=== PATIENT | male | born 1980 | race Caucasian/White ===

== ENCOUNTER 2022-09-07 08:13 | Outpatient (CLI) | payer MEDICARE, SELFPAY ==
--- NOTE | 2022-09-16 17:15 | WPDSLEEPSTUD ---
Sleep Study Date of Study: 09/07/22 Ordering Provider: Mirella Junior Interpreting Physician: Ivelisse Dale MD Sleep Study Type: CPAP Titration Height: 1.7 m Weight: 111.13 kg Body Mass Index: 38.3 Neck Circumference (inches): 17 [place]: 22 Reason for Sleep Study Hypersomnolence despite using Lunda device since March 2022; patient presents for a CPAP titration * 02/21/2022, home sleep test, [place], [place]; [employer] Lauren NightOne device; AHI 7.6 using 3% criteria, AHI 6.2 using 4% criteria, minimum oxygen desaturation 82%. Sleep History Ángel March is a 42-year-old man with a long history of loud snoring and excessive daytime sleepiness. He reports morning headaches. He was diagnosed with obstructive sleep apnea and started CPAP in March, using a Holli device which was difficult as his fullface mask did not give a good seal. He was only able to tolerate wearing it about 5 nights out of the week. The settings of this device are not known. He continues to have excessive daytime sleepiness. He rarely falls asleep while driving, however he has fallen asleep while eating and while being a passenger in a car. At night, it takes him a while to fall asleep. There is a family history of sleep issues, his father had obstructive sleep apnea. Patient rarely awakens from sleep feeling short of breath or awakens at night with heartburn, belching or coughing. He always snores loudly enough that others complain. Does not have trouble sleeping with a cold, does not gasp for breath at night or have breathing problems at night observed by others. He occasionally sweats excessively at night. He rarely notices his heart pounding or beating irregularly at night. Takes metoprolol for irregular heartbeats. Constantly falls asleep during the day, involuntarily, rarely while driving. he does not have loss of muscle tone with strong emotion. He is occasionally aware of feeling paralyzed on waking or falling asleep. He frequently has vivid dreamlike scenes on waking or falling asleep. He is not afraid to go to sleep. He does not have nightmares. He rarely remembers his dreams. He frequently has racing thoughts. He occasionally feels sad or depressed. He rarely has anxiety. He constantly has muscular tension, constantly notices parts of his body jerking and he constantly kicks at night. He occasionally has aching and crawling feelings in his legs. He frequently has leg pain at night. He rarely has morning jaw pain. He does not grind his teeth during sleep. He constantly is bothered by pain during the day. He frequently is awakened by pain at night. He constantly wakes up feeling stiff in the morning. He frequently wakes up with sore achy muscles. He always wakes up with pain in the neck and spine. He has a history of neck problems. He has claustrophobia and feels panicky. He has sexual problems, memory problems, palpitations and depression. He reports gaining 35 lb in the last year. Normal bedtime is 9:00 p.m. falling asleep within 2-3 hours, waking twice during the night. When he awakens during the night he turns off all of his electronics in places CPAP on. He wakes the morning at 6:15 a.m.. He estimates getting 6-8 hours of sleep at night. Weekend schedule is similar, bedtime is 9:00 p.m. but he wakes much later, 9 or 9:30 a.m.. He takes naps in the afternoon or evening. A short nap lasting 10 or 15 minutes is not refreshing. He is usually drowsy for an hour after waking. Habits: Never smoked tobacco. Caffeine 2-3 servings a day. No alcohol or recreational substances. [facility] Past Medical History Medical History (Updated 09/18/22 @ 15:50 by Ivelisse Dale MD) Depression GERD (gastroesophageal reflux disease) Hypothyroidism Migraine Muscle spasm Obstructive sleep apnea Osteoarthritis of back Osteoporosis Scoliosis due to degenerative disease of spine in adult patient
[2022-09-18 16:20] VITALS: BMI 38.3
== END 2022-09-08 07:33 | disposition home or self-care (01) ==
LOC: ANHCSM 08:14
DX: G47.33 Obstructive sleep apnea (adult) (pediatric) (principal)
CPT/HCPCS: 95811